=== PATIENT | male | born 1960 | race Caucasian/White ===

== ENCOUNTER 2018-11-11 01:33 | Emergency (ER) | payer OTHER ==
[2018-11-11 01:46] VITALS: BP 140/79
--- NOTE | 2018-11-11 02:00 | EDM.PDOC ---
ED HPI GENERAL MEDICAL PROBLEM - General Chief Complaint: General Stated Complaint: muscle pain Time Seen by Provider: 11/11/18 01:45 Source of Information: Reports: Patient, Family () History Limitations: Reports: No Limitations - History of Present Illness INITIAL COMMENTS - FREE TEXT/NARRATIVE: Patient is a 58-year-old gentleman well known to myself with long history of chronic lower back pain also patient has bilateral shoulder pain from rotator cuff tears in the past at this time he states that he was on a long trip from [place] to [facility] when he felt severe pain down both legs this was worse while sitting down improved when standing he did take meloxicam 2 today with very little improvement he complains of back spasm at this time which she puts it at 8 out of 10 Onset: Gradual Duration: Chronic, Getting Worse Location: Reports: Back Severity: Severe Improves with: Reports: Immobilization, Rest Worsens with: Reports: Movement Context: Reports: Exercise Treatments INFERTILITY NURSE: Reports: Other (see below) Other Treatments INFERTILITY NURSE: pt took Mobic around 2300 Left Knee Pain Score (Numeric/FACES): 7 Back Pain Score (Numeric/FACES): 7 Bilateral Shoulder Pain Score (Numeric/FACES): 7 - Related Data Allergies Allergy/AdvReac Type Severity Reaction Status Date / Time Penicillins Allergy UNKNOWN Verified 11/11/18 01:35 Home Meds: Home Meds Non-Formulary Medication [NF Drug] 1 each PO DAILY 12/09/15 [History] Meloxicam [Mobic] 1 tab PO DAILY 11/11/18 [History] Past Medical History Musculoskeletal History: Reports: Other (See Below) Other Musculoskeletal History: bilat knee scope- bialt shoulder rotary cuff Neurological History: Reports: Neuropathy, Peripheral Social & Family History - Tobacco Use Smoking Status *Q: Never Smoker Second Hand Smoke Exposure: No - Caffeine Use Caffeine Use: Reports: Coffee, Tea - Alcohol Use Days Per Week of Alcohol Use: 1 Number of Drinks Per Day: 1 Total Drinks Per Week: 1 - Recreational Drug Use Recreational Drug Use: No ED ROS GENERAL - Review of Systems Review Of Systems: See Below Constitutional: Reports: No Symptoms HEENT: Reports: No Symptoms Respiratory: Reports: No Symptoms Cardiovascular: Reports: Blood Pressure Problem Endocrine: Reports: No Symptoms GI/Abdominal: Reports: No Symptoms : Reports: No Symptoms Musculoskeletal: Reports: Shoulder Pain, Back Pain Skin: Reports: No Symptoms Neurological: Reports: Numbness (Lower extremities right greater than left), Gait Disturbance Psychiatric: Reports: No Symptoms Hematologic/Lymphatic: Reports: No Symptoms Immunologic: Reports: No Symptoms ED EXAM, GENERAL - Physical Exam Exam: See Below Exam Limited By: No Limitations General Appearance: Alert, WD/WN, No Apparent Distress Ears: Normal External Exam, Normal Canal, Hearing Grossly Normal, Normal TMs Ear Exam: Bilateral Ear: Auricle Normal, Canal Normal, TM normal Nose: Normal Inspection, Normal Mucosa, No Blood Throat/Mouth: Normal Inspection, Normal Lips, Normal Teeth, Normal Gums, Normal Oropharynx, Normal Voice, No Airway Compromise Head: Atraumatic, Normocephalic Neck: Normal Inspection, Supple, Non-Tender, Full Range of Motion Respiratory/Chest: No Respiratory Distress, Lungs Clear, Normal Breath Sounds, No Accessory Muscle Use, Chest Non-Tender Cardiovascular: Normal Peripheral Pulses, Regular Rate, Rhythm, No Edema, No Gallop, No JVD, No Murmur, No Rub GI/Abdominal: Normal Bowel Sounds, Soft, Non-Tender, No Organomegaly, No Distention, No Abnormal Bruit, No Mass (Male) Exam: Deferred Rectal (Males) Exam: Deferred Back Exam: Decreased Range of Motion, Muscle Spasm, Paraspinal Tenderness, Other (Right leg at 15 worse on the right than the left) Extremities: Leg Pain, Limited Range of Motion Course - Vital Signs Last Recorded V/S: Last Vital Signs Temp 97.7 F 11/11/18 01:35 Pulse 56 L 11/11/18 01:35 Resp 16 11/11/18 01:35 BP 140/79 11/11/18 01:35 Pulse Ox 100 11/11/18 01:35 - Orders/Labs/Meds Orders: Active Orders 24 hr Category Date Time Status Lumbar Spine Min 4V [CR] Stat Exams 11/11/18 02:10 Taken Meds: Medications Discontinued Medications Generic Name Dose Route Start Last Admin Trade Name Freq PRN Reason Stop Dose Admin Hydromorphone HCl 1 mg 11/11/18 02:07 11/11/18 02:13 Dilaudid IM 11/11/18 02:08 1 mg ONETIME ONE Administration Lorazepam 1 mg 11/11/18 02:05 11/11/18 02:11 Ativan PO 11/11/18 02:06 1 mg ONETIME ONE Administration Departure - Departure Time of Disposition: 03:00 Disposition: Home, Self-Care 01 Condition: Poor Clinical Impression: Back pain Qualifiers: Back pain location: low back pain Chronicity: chronic Back pain laterality: bilateral Sciatica presence: unspecified whether sciatica present Qualified Code (s): M54.5 - Low back pain; G89.29 - Other chronic pain - Discharge Information *PRESCRIPTION DRUG MONITORING PROGRAM REVIEWED*: Yes *COPY OF PRESCRIPTION DRUG MONITORING REPORT IN PATIENT PRASANNA: Yes Referrals: Hilario Prajapati MD [Primary Care Provider] - Forms: ED Department Discharge Additional Instructions: Patient will be given Dilaudid and Ativan for pain relief and muscle relaxant we will proceed with lumbar MRI follow-up in clinic continue taking the Modic will start Flexeril for pain and muscle spasm start prednisone 20 mg twice a day for 5 days we will schedule him with the pain clinic - My Orders Last 24 Hours: My Active Orders 11/11/18 02:10 Lumbar Spine Min 4V [CR] Stat - Assessment/Plan Last 24 Hours: My Active Orders 11/11/18 02:10 Lumbar Spine Min 4V [CR] Stat
[2018-11-11] MEDS ORDERED: LORazepam 0.5 MG Tab PO ONE (02:05)
[2018-11-11] MEDS ORDERED: HYDROmorphone 1 MG/ML Syringe IM ONE (02:07)
== END 2018-11-11 03:07 | disposition home or self-care (01) ==
LOC: LL.ED 01:33
DX: M54.5 Low back pain (principal); G89.29 Other chronic pain; M62.830 Muscle spasm of back; Z88.0 Allergy status to penicillin
CPT/HCPCS: 72110; 96372; 99283; A9270; J1170